=== PATIENT | male | born 1990 | race Caucasian/White ===

== ENCOUNTER 2020-01-08 14:33 | Emergency (ER) | payer OTHER, SELFPAY ==
[2020-01-08 14:37] VITALS: BP 110/87; PULSE 111; RESP 18; TEMP 36.4; O2SAT 97
--- NOTE | 2020-01-08 16:38 | ED.GENADULT ---
HPI - General Adult General Chief complaint: Wound/Laceration <ROC Garcia Last Filed: 01/08/20 16:43> Stated complaint: finger laceration <ROC Garcia Last Filed: 01/08/20 16:43> Time Seen by Provider: 01/08/20 14:41 <ROC Garcia Last Filed: 01/08/20 16:43> Source: patient <ROC Garcia Last Filed: 01/08/20 16:43> Mode of arrival: ambulatory <ROC Garcia Last Filed: 01/08/20 16:43> Limitations: no limitations <ROC Garcia Last Filed: 01/08/20 16:43> History of Present Illness HPI narrative: Patient is a 29-year-old male who presents with laceration to the right fifth digit patient was using a sharp knife when he lacerated himself notes his tetanus to be up-to-date notes moderate aching pain patient denies any radicular symptoms or paresthesias but notes he is unable to flex. Patient on arrival in the room in no distress <ROC Garcia Last Filed: 01/08/20 16:43> Related Data Home medications: Home Medications Medication Instructions Recorded Confirmed gabapentin 300 mg capsule 900 mg PO TID cap 05/27/19 hyoscyamine sulfate 0.125 mg tablet 0.125 mg PO DAILY tablet 05/27/19 metoprolol tartrate 25 mg tablet 25 mg PO DAILY 05/27/19 oxycodone 10 mg tablet 10 mg PO Q4-6H PRN tablet 05/27/19 amoxicillin 01/08/20 chlorhexidine gluconate 01/08/20 01/08/20 clonazepam 01/08/20 dexamethasone 01/08/20 hydrocodone-acetaminophen 01/08/20 mirtazapine mg 01/08/20 <ROC Garcia Last Filed: 01/08/20 16:43> Allergies/adverse reactions: Allergies Allergy/AdvReac Type Severity Reaction Status Date / Time ketorolac Allergy Intermediate CRAWLING Verified 01/08/20 14:41 OUT OF SKIN cephalexin Allergy Mild Rash Verified 01/08/20 14:41 clindamycin Allergy Mild RASH Verified 01/08/20 14:41 prochlorperazine Allergy Mild Jittery Verified 01/08/20 14:41 sulfamethoxazole Allergy Mild Jittery Verified 01/08/20 14:41 trimethoprim Allergy Mild Rash Verified 01/08/20 14:41 diphenhydramine Allergy Unknown Jittery Verified 01/08/20 14:41 mycins Allergy Intermediate Jittery Uncoded 01/08/20 14:41 <Paulino Cabrera PA-C - Last Filed: 01/08/20 16:43> Review of Systems Review of Systems: All systems reviewed & are unremarkable except as noted in HPI and below <Paulino Cabrera PA-C - Last Filed: 01/08/20 16:43> PMFSH Past Medical History Medical History: Medical History Atrial fibrillation by electrocardiogram Chest pain in adult 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 <ROC Garcia Last Filed: 01/08/20 16:43> Family History Family History: Family History (Updated 11/07/18 @ 14:39 by DOCTOR UNKNOWN) Mother Family history of mental disorder Hypertension Patient's mother is in good health Family history of irritable bowel syndrome Father Patient's father is in good health <ROC Garcia Last Filed: 01/08/20 16:43> Social History Social History: Social History Smoking status: Never smoker Gender identity (if verbalized by the patient): Male <Paulino Cabrera PA-C - Last Filed: 01/08/20 16:43> Exam Narrative: Exam Narrative: GENERAL: Well-appearing, well-nourished, and in no acute distress. HEAD: Normocephalic, atraumatic. EYES: PERRLA and EOMI. ENT: Nares clear, no rhinorrhea or epistaxis. Mucous membranes moist. EXTREMITIES: 1 cm linear laceration on the palmar aspect of the PIP joint of the right hand fifth digit SKIN: Warm, dry, no rash. NEURO: No focal deficits. Alert and oriented x3. Neurovascularly intact. Capillary refill less than 2 seconds PSYCH: Normal mood and affect. <Paulino Cabrera PA-C - Last Filed: 01/08/20 16:43> Course Course Emergency Course:
[2020-01-08 16:55] VITALS: BP 107/71; PULSE 82; RESP 16; TEMP 36.9; O2SAT 100
--- NOTE | 2020-01-19 11:26 | PC.NURSE ---
LATE ENTRY This note is being entered to document information to the patient's record. The following information was omitted on [01/08/2020], by [KL] Metal Finger splint applied to injury per Verbal order by Dr. Gamez.
== END 2020-01-08 16:57 | disposition home or self-care (01) ==
PROVIDERS: Emergency Provider General Practice; PCP Family Medicine
DX: S66.326A Laceration of extensor muscle, fascia and tendon of right little finger at wrist and hand level, initial encounter (principal); S61.216A Laceration without foreign body of right little finger without damage to nail, initial encounter; W26.0XXA Contact with knife, initial encounter
CPT/HCPCS: 12001; 99283

== ENCOUNTER 2020-01-29 01:40 | Day surgery (SDC) | payer OTHER, SELFPAY ==
[2020-01-13 16:55] VITALS: BMI 20.9
--- NOTE | 2020-01-28 20:12 | HP_ITS ---
DATE OF SERVICE: 01/29/2020 PREOPERATIVE DIAGNOSIS: Laceration of the flexor digitorum superficialis and flexor digitorum profundus of the right little finger. HISTORY: The patient is 29, is a right-hand dominant fellow, who was in the emergency room at [facility] 01/08/2020 after lacerating the right 5th finger on the palmar surface at the PIP joint. The injury happened in his own kitchen when he was cutting something and apparently started to drop the knife and grabbed for it and caught the blade. He has not been able to flex that finger since then. The wound was repaired in the emergency room, it is quite small. He lost no sensory function and the digit is well perfused. We discussed this injury. He would like to have it repaired. This involves both tendons in zone 2, this is a difficult repair. It is possible that some part of the tendon may be sacrificed. It is possible only 1 tendon will be repaired. He is aware of these options that will be made intraoperatively by me. The intention is to have a functioning finger that can work as well as possible. He is aware that stiffness may result and may never be return to his so-called normal situation. He would like to proceed. PAST MEDICAL HISTORY: Fairly complicated. ALLERGIES: HE HAS ALLERGIES TO MYCINS, SULFA, KEFLEX, SOTALOL, TORADOL, AND BENADRYL. MEDICATIONS: Current medication list includes: 1. Gabapentin. 2. Nortriptyline. 3. Metoprolol. 4. Klonopin. 5. Oxycodone. 6. Hyoscyamine. 7. Vitamins. 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 He has had some surgery for fusion in his neck and I believe he is trying to get further care for that. He has a lot of neck pain and that is part of the reason that he takes some of his medications and has a difficult time getting moving each day due to pain. Hence, we cleared his case in urgency as he is not able to get up and get going to get the COVID test done in the small window offered each morning. The patient claims he has never had a problem with general anesthesia. REVIEW OF SYSTEMS: He is a nonsmoker. He has some heart disease with arrhythmia. His mother says that he has dextrocardia and hypoplasia of the right lung and heart. Has not been able to gain further information on those conditions as related to his case. FAMILY HISTORY: Noncontributory. SOCIAL HISTORY: Lives in [place]. He is on disability. PHYSICAL EXAMINATION: GENERAL: He is said to be 5 foot 6, weighing 130 pounds. He is a pleasant young man, in no distress. HEENT: Unremarkable. CHEST: Clear to auscultation. HEART: Regular rate and rhythm by palpation. ABDOMEN: Soft, nontender. EXTREMITIES: Reveals inability to flex the right little finger. Sensation is intact. DIAGNOSIS: Laceration of the right little finger including both flexor tendons in zone 2. PLAN: Repair under general anesthesia. D I MT: [facility]
[2020-01-29] VITALS (9 sets, daily range): BP systolic 86–117; BP diastolic 59–78; PULSE 67–83; RESP 10–18; TEMP 36.1–36.4; O2SAT 98–100
--- NOTE | 2020-01-29 08:47 | WPDHPUPDATE1 ---
History and Physical Update Update Date/Time: 01/29/20 08:47 History and Physical has been reviewed, including an updated exam of the patient. There are NO changes in the patient's condition. Risks, benefits, and alternatives have been discussed and questions answered. Patient agrees to proceed with procedure.
--- NOTE | 2020-01-29 10:18 | ECG_ITS ---
Measurements Intervals Richards Rate: 66 P: 28 WY: 134 QRS: 63 QRSD: 106 T: 91 QT: 354 QTc: 373 Interpretive Statements SINUS RHYTHM CONSIDER HIGH LATERAL INFARCT, AGE INDETERMINATE ABNORMAL ECG Electronically Signed On 01-29-2020 13:14:29 CDT by Luis Davey D.O.
[2020-01-29] MEDS: LACTATED RINGERS 1,000 ML 30 ML IV CONT (12:20)
--- NOTE | 2020-01-29 12:50 | WPDANESEPPF ---
Anes - Initial Pre Proc Eval Procedure: Operation Date: 01/29/20 13:45 Proposed Procedures p Repair Flexor Digitorum Superficialis And Flexor Digitorum Profundus Right Small Finger - Oj Delgado MD Date/Time: 01/29/20 12:50 Surgeon: Oj Delgado MD Pre Op Diagnosis: Laceration of FDS and FDP Right Sm Finger Patient Data Age: 30 Gender: M Height: 5 ft 6 in Weight: 58.9 kg Allergies Allergy/AdvReac Type Severity Reaction Status Date / Time ketorolac Allergy Intermediate CRAWLING Verified 01/08/20 14:41 OUT OF SKIN cephalexin Allergy Mild Rash Verified 01/08/20 14:41 clindamycin Allergy Mild RASH Verified 01/08/20 14:41 prochlorperazine Allergy Mild Jittery Verified 01/08/20 14:41 sulfamethoxazole Allergy Mild Jittery Verified 01/08/20 14:41 trimethoprim Allergy Mild Rash Verified 01/08/20 14:41 diphenhydramine Allergy Unknown Jittery Verified 01/08/20 14:41 mycins Allergy Intermediate Jittery Uncoded 01/08/20 14:41 Home Medications Medication Instructions Recorded Confirmed Type gabapentin 300 mg capsule 900 mg PO TID cap 05/27/19 01/13/20 History hyoscyamine sulfate 0.125 mg tablet 0.125 mg PO DAILY tablet 05/27/19 01/13/20 History metoprolol tartrate 25 mg tablet 25 mg PO BID 05/27/19 01/13/20 History oxycodone 10 mg tablet 10 mg PO Q4-6H PRN tablet 05/27/19 01/13/20 History clonazepam 0.5 mg PO PRN PRN 01/08/20 01/13/20 History mirtazapine 15 mg PO HS 01/08/20 01/13/20 History albuterol sulfate 90 mcg INHALATION DAILY 01/13/20 01/13/20 History nortriptyline 75 mg PO HS 01/13/20 01/13/20 History ondansetron HCl [Zofran] 4 mg PO Q6H 01/13/20 01/13/20 History umeclidinium [Incruse Ellipta] 62.5 mcg INHALATION PRN 01/13/20 01/13/20 History Patient hx anesthesia problems: none Family hx anesthesia problems: none PMFSH Family History Family History (Updated 11/07/18 @ 14:39 by DOCTOR UNKNOWN) Mother Family history of mental disorder Hypertension Patient's mother is in good health Family history of irritable bowel syndrome Father Patient's father is in good health Social History Social History Smoking status: Never smoker Living arrangements: with family Gender identity (if verbalized by the patient): Male Spiritual care concerns: No Anes - Eval Final PreProcedure Day of Procedure 01/29/20 12:50 Patient weight: normal Heart: regular rate and rhythm Lungs: clear to auscultation Airway: Mallampati scale class II Neurological: alert and oriented Last oral intake: >/= 8 hours ASA classification: III Emergent: no Anesthetic plan: proceed Anesthesia type and monitoring: general LMA and standard monitoring Informed Consent: The patient's anesthetic plan and its attendant risks and benefits were discussed with the patient/family/POA. Questions were solicited and answers provided to the satisfaction of the patient/family/POA.
[2020-01-29] MEDS: AMPICILLIN SULB 3 GM/NS 100 ML 3 GM/100 ML VIAL IVPB (13:01)
[2020-01-29] MEDS: LIDO 1%/EPINEPHRINE 1:100,000 20 ML VIAL INFILTRATE (13:42)
[2020-01-29] MEDS: BUPIVACAINE/EPINEPHRINE 0.25% 50 ML VIAL INFILTRATE (15:04)
--- NOTE | 2020-01-29 15:25 | PM.OP ---
Procedure Note - Brief Procedure Note - Brief Date of procedure: 01/29/20 Pre-op diagnosis: Laceration of FDS and FDP Right Sm Finger Post-op diagnosis: same Procedure performed: Primary repair of FDP Zone 2. Anesthesia: GETA Surgeon: Oj Delgado MD [employer] Room Operator: Zenaida Akbar Estimated blood loss (mL): 2 Tourniquet time (min): 87 Drains: No Packing: No Pathology: none sent Complications: No immediate complications Condition: stable Disposition: PACU
--- NOTE | 2020-01-29 15:38 | PM.PROC ---
Procedure Note - Detailed Date of procedure: 01/29/20 Pre-op diagnosis: Laceration of FDS and FDP Right Sm Finger Post-op diagnosis: same Procedure performed: Primary repair of the flexor digitorum profundus tendon in zone 2 right small finger Description of procedure: The site was marked on the patient's hand while he was in the holding area. Treatment options were discussed once again such as repairing part of the superficialis or non or all. He declared that he had sensation to light touch on the pad of the finger, but it seems to be less sensitive on the radial half and we explained we would look at the nerve. He was taken to the operating room and placed supine on the operating table. A time-out was held and confirmed. He was given general endotracheal anesthesia and the extremity was prepped and draped in usual fashion. 3 g of Unasyn were run in just before and during the early part of the case. The site was carefully examined. The old sutures were removed.Markings were placed for a mid lateral incision on the radial aspect to create an ulnar based flap.The digit was infiltrated with 1% lidocaine with epinephrine. At the end of the case four milliliters of 0.25% Marcaine with epinephrine were also infiltrated as a digital block. The tourniquet was inflated to 250 mmHg. The incision was made as marked and the ulnar based mid lateral flap was elevated exposing the neurovascular bundle and the flexor tendon sheath. The radial digital nerve was noted to be intact. The laceration of the tendon sheath was directly over the proximal interphalangeal joint. The distal stump of the long flexor tendon lay at the proximal edge of the A4 bhumi. Both tendons were noted to be cut but had retracted little. The long flexor tendon was appropriately positioned in the chiasm. The flexor tendon sheath was opened just distal to the A1 bhumi and the long flexor tendon pulled out from that opening a locking 4-0 FiberWire suture was placed at that and. the [employer] device was utilized to help pass the sutures through the tendon sheath and to help tuck the end of the long flexor tendon into the pulleys. The distracted tendon was held in position with a 25 gauge needle placed through the A1 bhumi The proximal half of the A4 bhumi was opened to allow optimal placement of the FiberWire suture. The A 2 and A3 pulleys were left intact. The repair was carried out distal to the A3 bhumi with a locking 4 strand 4-0 FiberWire repair. A circumferential epi tendinous suture was also placed beginning on the backside before the core sutures were tightened. There was little bulkiness at the repair site and the tendon appeared to glide freely between the A3 and A4 pulleys. The skin was closed with a running 4-0 nylon suture the additional Marcaine was placed and the small and ring fingers were placed in a soft gauze bandage and together in a ortho glass Cong type splint . This patient has oxycodone 04/10 25 at home and no new prescriptions were written for him. He is being discharged with instructions in wound care and follow-up. Surgeon: Oj Delgado MD
== END 2020-01-29 17:40 | disposition home or self-care (01) ==
PROVIDERS: Visit Provider Plastic Surgery
PROC: (CPT 26356; principal; 2020-01-29 13:45)
DX: S66.126A Laceration of flexor muscle, fascia and tendon of right little finger at wrist and hand level, initial encounter (principal); W26.0XXA Contact with knife, initial encounter; Q76.1 Klippel-Feil syndrome; K52.29 Other allergic and dietetic gastroenteritis and colitis
CPT/HCPCS: 26356; 93005; A9270; J0295; J2250; J2405; J2704; J3010; J7120

== ENCOUNTER 2020-02-20 12:19 | Outpatient (RCR) | payer OTHER, SELFPAY ==
--- NOTE | 2020-02-20 14:18 | OTOPEVAL ---
OCCUPATIONAL THERAPY EVALUATION REPORT 02/20/2020 Thank you for referring Eliazar Wilkins to [facility].? The patient is scheduled to be seen for therapy? 1-2x/week for 4 weeks. Beginning with 1x/week and then increasing to 2x/week as therapy becomes more involved as the patient heals. Please review, sign, date and return this plan of care GI. I agree with and certify that the following plan of care is medically necessary. Referring Physician Date Referring Provider: Oj Delgado MD *OT Outpatient Evaluation Therapy Assessment Status Assessment Status Assessment Status Evaluation Outpatient Past Medical History Neurological History Hx Neurological Disorders No Significant History Cardiovascular History Hx Hypertension Yes Hx Other Cardiac Disorders Yes: DEXTRACARDIA POSITIONING Respiratory History Hx Asthma Yes Hx Other Respiratory Disorders Yes: HYPOPLASTIC RIGHT LUNG Gastrointestinal History Hx Diverticulitis Yes Hx Obstructive Bowel Yes Hx Other Gastrointestinal Disorders Yes: HYPERSENSITIVE GI SYSTEM Genitourinary History Hx Genitourinary Disorders No Significant History Musculoskeletal History Hx Degenerative Disk Disease Yes Hx Fractures Yes: FX CERVICAL VERTIVRATES Hx Scoliosis Yes Hx Other Musculoskeletal Disorders Yes: KLIPPLE FIEL Hematological History Hx Hematological Disorders No Significant History Endocrine History Hx Endocrine Disorders No Significant History HEENT History Hx HEENT Disorders No Significant History Integumentary History Hx Skin Disorders No Significant History Psychosocial History Hx Anxiety Yes Hx Depression Yes Pain History Has Past Pain Affected Your Daily Life Yes History of Long-Term Prescription Pain Yes Medication Use (Opiates) Effective Methods of Pain Control BEEN ON PAIN MEDS FOR ABOUT 6 YEARS Anesthesia History Hx Anesthesia Reactions No Significant History Evaluation Information Problem Diagnosis Repair of (R) little finger FDP, zone II Additional Evaluation Detail Initial injury 01/08/20 Repair 01/29/20 Prior Level of Function Activity Level (Last 3 Months) Occupation On disability Hand Dominance Right Pain Assessment Timing of Pain Assessment Timing of Pain Assessment Assessment Self Report Self Report Pain Level 0 Pain Score Pain Score 0: Self Report Upper Extremity Muscle Strength Testing General Upper Extremity Strength Gross Upper Extremity Strength Comments Did not assess AROM of the (R) wrist or fingers due to recent surgery. PROM of small finger:
--- NOTE | 2020-03-02 14:04 | PCOTNOTE ---
Patient did not show to scheduled appt today.
--- NOTE | 2020-03-18 14:57 | OTOPEVAL ---
OCCUPATIONAL THERAPY RE-EVALUATION REPORT 03/18/2020 Thank you for referring Eliazar Wilkins to [facility].? The patient is scheduled to be seen for continued therapy?2x/week for 4 weeks. Please review, sign, date and return this re-evaluation report GI. I agree with and certify that the following plan of care is medically necessary. Referring Physician Date Referring Provider: Oj Delgado MD *OT Outpatient Evaluation Evaluation Information Problem Diagnosis Laceration of FDS and FDP of (R) small finger Additional Evaluation Detail -Initial injury 01/08/20 -Repair 01/29/20: Primary repair of the FDP, zone II -Therapy has been working with Eliazar since 02/20/20 following FDP repair. A modified immobilization protocol was used following surgery due to a delay in patient getting into therapy. HEP has included protected passive flexion and active extension in the dorsal blocking splint, progressing to place and holds for full fist and hook fist, tenodesis, and this week (week 7 post op) he began AROM. He has been weaning off the dorsal blocking splint and only has been wearing it at night. -Since the start of care, the patient has had questionable compliance with splint wearing and completing his HEP as regularly as prescribed thus a protected progression to AROM was indicated Subjective Information Patient reports overall that Query Text:As Reported By Patient/ his pain has reduced to 0/10 Family since starting therapy. He does note some intermittent soreness which resolves with ROM exercises. Pain Assessment Timing of Pain Assessment Timing of Pain Assessment Re-assessment Self Report Self Report Pain Level 0 Pain Score Pain Score 0: Self Report Upper Extremity Range of Motion Finger Range of Motion Right Little Finger MCP Joint Flexion - Active 95 Little Finger MCP Joint Flexion - 100 Passive Little Finger MCP Joint Extension - 0 Active
--- NOTE | 2020-04-12 16:36 | PCOTNOTE ---
Patient called & cancelled scheduled appointment this date. No reason given.
--- NOTE | 2020-04-14 14:14 | OTOPEVAL ---
Occupational Therapy Progress Update 04/14/2020 Eliazar was unable to attend therapy this week, which included his therapy re-evaluation today, due to being ill. Since his last re-evaluation on 03/18/20 he has been seen for therapy for 5 visits. Therapy has progressed to gentle strengthening with light theraputty. He has also been intermittently wearing a PIP extension splint to reduce the small finger PIP flexion contracture. Next week (04/22/20) connell 12 weeks post op. He was unable to get rescheduled for his therapy re-evaluation until 05/03. 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 Thank you for referring Eliazar Wilkins to [facility].?Please review, sign, date and return this plan of care GI. I agree with and certify that the following plan of care is medically necessary. Referring Physician Date Attending Provider: Oj Delgado MD Referring Provider: Oj Delgado MD
--- NOTE | 2020-05-03 15:13 | OTOPEVAL ---
OCCUPATIONAL THERAPY RE-EVALUATION REPORT 05/03/2020 Thank you for referring Eliazar Wilkins to [facility].? The patient is scheduled to be seen for continued occupational therapy?1x/week for 5 weeks. Please review, sign, date and return this plan of care GI. I agree with and certify that the following plan of care is medically necessary. Referring Physician Date Referring Provider: Oj Delgado MD *OT Outpatient Evaluation Evaluation Information Problem Diagnosis Laceration of FDS and FDP of (R) small finger Additional Evaluation Detail -Initial injury 01/08/20 -Repair 01/29/20: Primary repair of the FDP, zone II -Therapy has been working with Eliazar since 02/20/20 following FDP repair. A modified immobilization protocol was used following surgery due to a delay in patient getting into therapy. HEP has progressed to AROM and gentle strengthening with theraputty. Subjective Information Patient reports overall that Query Text:As Reported By Patient/ his pain has reduced to 0/10. Family He states the flexion of his little finger is 95% normal . He states his hand does not restrict him functionally for tasks such as carrying grocery bags and putting groceries away. He states that he still is guarded when it comes to gripping objects with a lot of force. Pain Assessment Timing of Pain Assessment Timing of Pain Assessment Re-assessment Self Report Self Report Pain Level 0 Pain Score Pain Score 0: Self Report Upper Extremity Range of Motion Finger Range of Motion Right Little Finger MCP Joint Flexion - Active 95 Little Finger MCP Joint Flexion - 100 Passive Little Finger MCP Joint Extension - 0 Active Little Finger PIP Joint Flexion - Active 95 Little Finger PIP Joint Flexion - 100 Passive Little Finger PIP Joint Extension - -30 Active Little Finger PIP Joint Extension - -15 Passive Little Finger DIP Joint Flexion - Active 55 Little Finger DIP Joint Flexion - 85 Passive Little Finger DIP Joint Extension - -30 Active Little Finger DIP Joint Extension - 0 Passive
--- NOTE | 2020-05-10 12:41 | PCOTNOTE ---
Patient called and cancelled tx today due to having an emergency dental appt.
--- NOTE | 2020-05-19 13:25 | PCOTNOTE ---
This treatment is being continued on visit number [id number]. Please see documentation on both accounts to view progress. Completed interventions, outcomes, and problems have been marked as Inactive to facilitate the copying of the Care plan routine for recurring accounts.
== END 2020-05-19 09:29 | disposition home or self-care (01) ==
LOC: ANHOT 12:19
PROVIDERS: Visit Provider Plastic Surgery
DX: Z48.89 Encounter for other specified surgical aftercare (principal)
CPT/HCPCS: 97018; 97035; 97110; 97140; 97167; L3808

== ENCOUNTER 2020-05-19 09:30 | Outpatient (RCR) | payer OTHER, SELFPAY ==
--- NOTE | 2020-05-19 13:26 | PCOTNOTE ---
The treatment documented on this account is a continuation of the treatment documented on visit number [id number]. Please see documentation on both accounts to view progress. The Plan of Care has been transitioned and updated within the new V#. I have addressed and agree with the discipline specific Problems, Interventions, and Goals for the current certification period. Completed interventions, outcomes, and problems have been marked as Inactive to facilitate the copying of the Care plan routine for recurring accounts.
--- NOTE | 2020-05-31 13:37 | OTOPEVAL ---
OCCUPATIONAL THERAPY DISCHARGE NOTE 05/31/2020 Eliazar called and cancelled his re-evaluation appointment this date stating his PCP advised him to stay home due to COVID-19. Today was going to be the patient's last visit as he has been doing very well with therapy. 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 He stated at that time that his hand feels back to normal . He was independent with strengthening HEP. Discharging from OT today without a formal re-assessment. Please review, sign, date and return this Discharge Note GI. I agree with and certify that the following plan of care is medically necessary. Referring Physician Date Referring Provider: Oj Delgado MD
== END 2020-06-01 11:10 | disposition home or self-care (01) ==
LOC: ANHOT 09:30
PROVIDERS: Visit Provider Plastic Surgery
DX: Z48.89 Encounter for other specified surgical aftercare (principal)
CPT/HCPCS: 97018; 97110; 97140

== ENCOUNTER 2020-11-26 14:56 | Outpatient (CLI) | payer OTHER, SELFPAY ==
--- NOTE | ~2020-11-26 | MR_ITS ---
EXAMINATION: MR cervical spine wo con EXAM DATE: 11/26/2020 15:35 INDICATION: Cervical arthralgia, neck pain. TECHNIQUE: Multi-sequential, multiplanar MR images of the cervical spine were obtained without contra st. Axial T2, axial T2 MERGE sequence. Sagittal T1, T2, T2 fat saturation images also obtained. Com parison is made to prior examination from 04/03/2019. 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 Thoracic spine has osseous fusion of the T1-4 vertebral bodies and facet joints. There is a vertical cleft in the freestanding C5 segment. There is moderate to severe disc disease along the right side of the C4-5 articulation. Reversal of normal cervical franco dosis. The vertebral bodies are aligned in the AP dimension. No evidence of acute bone marrow edema. The spinal cord signal intensity and intrinsic morphology is normal. Cervicomedullary junction is no rmal in appearance. Level by level evaluation: Difficult to do level by level evaluation, given the congenital anomalies. At C4-5 there is severe narrowing of a right neural foramina, none on the left. At C5-C6 there is mo derate left neural foraminal stenosis. Levels below this appear to be patent. These 2 levels have bee n indicated on the sagittal T2-weighted sequence image 3 and image 11 respectively. Paraspinal soft t issue is unremarkable. Mediastinum is shifted to the right. Mild progression in the C4-5 and 5-6 disc disease compared to 2019. IMPRESSION: 1. Nomenclature for purposes of this exam, single freestanding cervical vertebral body has been labe led C5. 2. Severe right neural foraminal stenosis C4-5 and moderate left neural foraminal stenosis C5-6 from arthritis. 3. 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 Reviewed, dictated and finalized at location A. IMPRESSION: 1. Nomenclature for purposes of this exam, single freestanding cervical verteb ral body has been labeled C5. 2. Severe right neural foraminal stenosis C4-5 and moderate left neural forami nal stenosis C5-6 from arthritis. 3. 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
== END 2020-11-26 14:57 | disposition home or self-care (01) ==
LOC: ANHIMG 14:58
PROVIDERS: Visit Provider Pain Medicine Pain Medicine
DX: M54.2 Cervicalgia (principal); Z79.891 Long term (current) use of opiate analgesic; M46.02 Spinal enthesopathy, cervical region; Q76.1 Klippel-Feil syndrome; Q76.49 Other congenital malformations of spine, not associated with scoliosis
CPT/HCPCS: 72141

== ENCOUNTER 2023-07-06 19:19 | Emergency (ER) | payer OTHER, SELFPAY ==
[2023-07-06 19:26] VITALS: BP 148/110; PULSE 145; RESP 26; TEMP 35.8; O2SAT 94
--- NOTE | 2023-07-06 19:32 | ECG_ITS ---
Measurements Intervals [place] Rate: 126 P: 28 NE: 132 QRS: 47 QRSD: 93 T: 157 QT: 335 QTc: 486 Interpretive Statements SINUS TACHYCARDIA PROBABLE SEPTAL MYOCARDIAL INFARCTION , PROBABLY OLD [35 ms Q WAVE IN V1/V2] INTERPRETATION BASED ON A DEFAULT AGE OF 40 YEARS COMPARED TO ECG 01/29/2020 12:37:22 SINUS TACHYCARDIA NOW PRESENT Electronically Signed On 07-08-2023 14:21:13 [employer] by Keanu Sheriff M.D.
[2023-07-06 19:33] VITALS: RESP 30
[2023-07-06 19:36] VITALS: BP 142/106; PULSE 128; RESP 44; TEMP 36.7; O2SAT 98
[2023-07-06 19:37] VITALS: PULSE 128
--- NOTE | 2023-07-06 19:38 | PC.NURSE ---
Patient states he was taking pain medication for chronic neck pain and took too much.
[2023-07-06] MEDS: cloNIDine HCL 0.1 MG TABLET PO (19:44)
[2023-07-06] MEDS: SODIUM CHLORIDE 0.9% IV 1,000 ML 999 ML IV CONT (19:46)
[2023-07-06] MEDS: ONDANSETRON INJ 4 MG/2 ML VIAL IV PUSH ×2 (19:47→21:28)
[2023-07-06] MEDS: LORazepam INJ (*CRX) 2 MG/ML VIAL 1 MG IV PUSH (19:48)
--- NOTE | 2023-07-06 19:53 | PC.NURSE ---
Per EDP Dr. Pino patient does not need a covid swab
[2023-07-06 20:02] LABS: Basophils Absolute Auto 0.1 K/mm3 (0.0-0.1); Basophils Percent Auto 0.3 % (0.2-1.2); Eosinophils Percent Auto 0.3 % (0-4.4); Hematocrit 42.9 % (42.0-52.0); Hemoglobin 14.5 g/dL (14.0-18.0); Immature Granulocyte Absolute 0.08 K/mm3 (0.00-0.031); Immature Granulocyte Percent A 0.5 % (0-0.5); Lymphocytes Absolute Auto 1.03 K/mm3 (0.9-3.2); Lymphocytes Percent Auto 6.5 % (18.3-44.2); Mean Corpuscular HGB Conc 33.8 g/dl (32-36); Mean Corpuscular Hemoglobin 32.3 pg (26-34); Mean Corpuscular Volume 95.5 fl (80-100); Mean Platelet Volume 8.8 fl (7.4-10.4); Monocytes Absolute Auto 0.6 K/mm3 (0.1-0.6); Monocytes Percent Auto 3.7 % (2.6-8.5); Neutrophils Absolute Auto 14.1 K/mm3 (1.3-6.7); Neutrophils Percent Auto 88.7 % (45.5-73.1); Platelet Count Result 410 k/mm3 (150-375); Red Blood Count 4.49 M/mm3 (4.6-6.20); Red Cell Distribution Width 11.6 % (11.5-14.5); White Blood Count 15.9 K/mm3 (4.5-10.0)
[2023-07-06] MEDS: ACETAMINOPHEN 500 MG TABLET 1000 MG PO (20:06)
--- NOTE | 2023-07-06 20:09 | PC.NURSE ---
Addendum entered by Toby Christian RN 07/06/23 20:15: EDP Dr. Pino notified. Original Note: Patient states that he vomited today and it was brown and black.
[2023-07-06 20:11] LABS: Alanine Aminotransferase 45 U/L (6-50); Albumin Level 4.7 g/dL (3.5-5.1); Alkaline Phosphatase 87 U/L (38-126); Anion Gap 14 mmol/L (8-16); Aspartate Amino Transferase 29 U/L (17-59); Bilirubin,Total 0.3 mg/dL (0.2-1.3); Blood Urea Nitrogen 13 mg/dL (9-20); Carbon Dioxide 20 mmol/L (22-30); Chloride 104 mmol/L (98-107); Estimated CRCL calculation 101 ml/min; Estimated Glomerular Filt Rate > 60; Glucose 106 mg/dL (65-110); Potassium 4.2 mmol/L (3.4-5.0); Sodium 138 mmol/L (137-145)
[2023-07-06 20:12] LABS: Acetaminophen < 10 ug/mL (10-30); Ethanol < 10 mg/dL (<10); Salicylate < 1.0 mg/dL (2-20)
--- NOTE | 2023-07-06 20:16 | PC.NURSE ---
Patient refuses straight catheter and requested bed side urinal.
[2023-07-06] MEDS: MORPHINE SULFATE (*CRX) 4 MG/ML INJ IV PUSH (20:19)
--- NOTE | 2023-07-06 20:22 | ED.GENADULT ---
HPI - General Adult General Chief complaint: Overdose Stated complaint: OD on opiods? given narcan Time Seen by Provider: 07/06/23 19:37 History of Present Illness HPI narrative: Patient 32-year-old gentleman presents emergency department with chief complaint of possible overdose patient has history of chronic neck pain check a 30 mg OxyContin and then 5 mg of OxyContin later on the patient was somewhat sleepy afterwards but did not actually stop breathing the family decided to give him a dose of intranasal Narcan at 7:00 p.m. and afterwards the patient started vomiting and became very agitated and had pupils that were dilated. The patient reports that he is in severe pain after receiving Narcan the patient did deny suicidal or homicidal ideation Related Data Home Medications Medication Instructions Recorded Confirmed gabapentin 300 mg capsule 900 mg PO TID 05/27/19 01/29/20 hyoscyamine sulfate 0.125 mg tablet 0.125 mg PO DAILY 05/27/19 01/13/20 metoprolol tartrate 25 mg tablet 25 mg PO BID 05/27/19 01/29/20 oxycodone 10 mg tablet 10 mg PO Q4-6H PRN Pain, Severe 05/27/19 01/29/20 clonazepam 0.5 mg tablet 0.5 mg PO PRN PRN Anxiety 01/08/20 01/29/20 mirtazapine 15 mg tablet 15 mg PO HS 01/08/20 01/13/20 albuterol sulfate 90 mcg/actuation 90 mcg inhalation DAILY 01/13/20 01/13/20 aerosol inhaler nortriptyline 75 mg capsule 75 mg PO HS 01/13/20 01/13/20 ondansetron HCl 4 mg tablet 4 mg PO Q6H 01/13/20 01/13/20 (Zofran) umeclidinium 62.5 mcg/actuation 62.5 mcg inhalation PRN 01/13/20 01/13/20 blister powder for inhalation (Incruse Ellipta) Allergies Allergy/AdvReac Type Severity Reaction Status Date / Time ketorolac Allergy Intermediate CRAWLING Verified 07/06/23 19:19 OUT OF SKIN cephalexin Allergy Mild Rash Verified 07/06/23 19:19 clindamycin Allergy Mild RASH Verified 07/06/23 19:19 prochlorperazine Allergy Mild Jittery Verified 07/06/23 19:19 sulfamethoxazole Allergy Mild Jittery Verified 07/06/23 19:19 trimethoprim Allergy Mild Rash Verified 07/06/23 19:19 diphenhydramine Allergy Unknown Jittery Verified 07/06/23 19:19 mycins Allergy Intermediate Jittery Uncoded 07/06/23 19:19 Review of Systems Review of Systems: A 10 system review of systems was completed on the patient and is negative except for what is stated in the HPI. Nursing and ancillary documentation was reviewed. 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 EYES: PERRLA and EOMI. ENT: Nares clear, no rhinorrhea or epistaxis. Mucous membranes moist. NECK: Supple. CHEST: Clear to auscultation. No respiratory distress. HEART: Regular rate and rhythm. No murmur heard. Normal peripheral pulses. ABDOMEN: Soft, nontender, nondistended, normal active bowel sounds. EXTREMITIES: Normal range of motion. No edema. SKIN: Warm, dry, no rash. NEURO: No focal deficits. Alert and oriented x3. PSYCH: Normal mood and affect. Course Vital Signs Vital signs: Vital Signs Temperature 35.8 C L 07/06/23 19:26 Pulse Rate 145 H 07/06/23 19:26 Respiratory Rate 26 H 07/06/23 19:26 B
[2023-07-06 20:42] LABS: Thyroid Stimulating Hormone 0.395 uIU/mL (0.465-4.680)
[2023-07-06] MEDS: HYDROmorphone HCL INJ (*CRX) 1 MG/ML SYR IV PUSH (21:08)
[2023-07-06 21:31] VITALS: BP 110/89; PULSE 109; RESP 17; O2SAT 98
== END 2023-07-06 22:02 | disposition home or self-care (01) ==
PROVIDERS: Emergency Provider Emergency Medicine
DX: F11.23 Opioid dependence with withdrawal (principal); T40.2X1A Poisoning by other opioids, accidental (unintentional), initial encounter; M54.2 Cervicalgia; G89.29 Other chronic pain; R00.0 Tachycardia, unspecified; R94.31 Abnormal electrocardiogram [ECG] [EKG]
CPT/HCPCS: 36415; 80053; 80307; 84443; 85025; 93005; 96361; 96374; 96375; 96376; 99284; A9270; J1170; J2060; J2270; J2405; J7030

== ENCOUNTER 2023-11-19 16:17 | Emergency (ER) | payer OTHER, SELFPAY ==
[2023-11-19 16:25] VITALS: BP 122/76; PULSE 95; RESP 18; TEMP 36.6; O2SAT 97
[2023-11-19 16:28] VITALS: BP 122/76; PULSE 95; RESP 18; TEMP 36.6; O2SAT 97
--- NOTE | 2023-11-19 16:34 | ED.GENADULT ---
HPI - General Adult General Chief complaint: Back Pain/Injury Stated complaint: Shoulder and Back Pain Time Seen by Provider: 11/19/23 16:35 Source: patient Mode of arrival: ambulatory Limitations: no limitations History of Present Illness HPI narrative: 33-year-old male presents with complaint of left upper back pain for the past 3-4 days. Denies injury. Feels like muscle strain or pinched nerve. Patient requesting prednisone. States he has had similar pain in the past and steroids helped. States that muscle relaxers do not help him. Is on prescription oxycodone for neck pain. Ambulatory with steady gait. No weakness to upper extremities. All systems reviewed and negative except as noted above. Related Data Home Medications Medication Instructions Recorded Confirmed gabapentin 300 mg capsule See Rx Instructions .Route .COMPLEX 05/27/19 11/19/23 metoprolol tartrate 25 mg tablet 25 mg PO BID 05/27/19 11/19/23 clonazepam 0.5 mg tablet 0.5 mg PO PRN PRN Anxiety 01/08/20 11/19/23 mirtazapine 15 mg tablet 45 mg PO HS 01/08/20 11/19/23 albuterol sulfate 90 mcg/actuation 90 mcg inhalation PRN PRN 01/13/20 11/19/23 aerosol inhaler Shortness Of Breath Or Wheezing nortriptyline 75 mg capsule 75 mg PO HS 01/13/20 11/19/23 umeclidinium 62.5 mcg/actuation 62.5 mcg inhalation DAILY 01/13/20 11/19/23 blister powder for inhalation (Incruse Ellipta) oxycodone-acetaminophen 5 mg-325 1 tablet PO Q6H PRN neck pain 11/19/23 11/19/23 mg tablet quetiapine 200 mg tablet 200 mg PO HS 11/19/23 11/19/23 Allergies Allergy/AdvReac Type Severity Reaction Status Date / Time diphenhydramine AdvReac Intermediate Jittery Verified 11/19/23 16:24 ketorolac AdvReac Intermediate CRAWLING Verified 11/19/23 16:24 OUT OF SKIN prochlorperazine AdvReac Intermediate Jittery Verified 11/19/23 16:24 sulfamethoxazole AdvReac Intermediate Jittery Verified 11/19/23 16:24 cephalexin AdvReac Mild Rash Verified 11/19/23 16:24 clindamycin AdvReac Mild RASH Verified 11/19/23 16:24 trimethoprim AdvReac Mild Rash Verified 11/19/23 16:24 mycins AdvReac Intermediate Jittery Uncoded 11/19/23 16:24 Review of Systems Review of Systems: CONSTITUTIONAL: Denies fever, chills, or sweats. EYES: Denies visual changes, redness, or discharge. ENT: Denies rhinorrhea, congestion, sore throat, or otalgia. CARDIOVASCULAR: Denies chest pain, palpitations, or edema. RESPIRATORY: Denies cough or dyspnea. GASTROINTESTINAL: Denies abdominal pain, nausea, vomiting, or diarrhea. GENITOURINARY: Denies dysuria or hematuria. SKIN: Denies rash or itching. MUSCULOSKELETAL: Reports left upper back pain. Denies joint pain, or myalgia. NEUROLOGIC: Denies headache, numbness, or weakness. PSYCHIATRIC: Denies anxiety or depression. All other systems reviewed are negative, except as documented in HPI. 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 There is no relevant family history pertinent to the presenting complaint. Exam Narrative: GENERAL: This is a well-nourished, well-developed patient, in no apparent distress. HEAD: normocephalic, atraum
== END 2023-11-19 16:51 | disposition home or self-care (01) ==
PROVIDERS: Emergency Provider Nurse Practitioner Family
DX: S29.012A Strain of muscle and tendon of back wall of thorax, initial encounter (principal); X58.XXXA Exposure to other specified factors, initial encounter; I48.91 Unspecified atrial fibrillation; Q22.6 Hypoplastic right heart syndrome
CPT/HCPCS: 99213; G0463